=== PATIENT | male | born 1940 | race Caucasian/White ===

== ENCOUNTER 2018-11-21 09:30 | Day surgery (SDC) | payer OTHER ==
[2018-11-21] MEDS: CYCLOPENTOLATE 1% OPTH 2 ML ONE ×3 (09:45→09:55)
[2018-11-21] MEDS: PHENYLEPHRINE 10% OPTH 5ML ONE ×3 (09:45→09:55)
[2018-11-21] MEDS ORDERED: BALANCED SALT IRRIG PLAIN 500 ML BTL IRR ONE (10:02)
[2018-11-21] MEDS ORDERED: EPINEPHRINE/PF 1 MG/ML AMP ONE (10:02)
[2018-11-21] MEDS ORDERED: DUOVISC 1 KIT OPTH ONE (10:02)
[2018-11-21] MEDS ORDERED: NS 0.9% VIAL 10 ML ONE (10:02)
[2018-11-21] MEDS ORDERED: MOXIFLOXACIN HCL 10 DROPS/ML **OR USE OPTH ONE (10:03)
[2018-11-21] MEDS ORDERED: LIDOCAINE 2% INJ, MPF 2 ML 0 ML ONE (10:03)
[2018-11-21] MEDS ORDERED: BUPIVACAINE 0.25% PF 10 ML VIAL ONE (10:36)
[2018-11-21] MEDS ORDERED: TETRACAINE HCL 0.5% 2ML OPTH ONE (10:36)
[2018-11-21] MEDS ORDERED: NA CHLORIDE 0.9% 500 ML ONE (10:36)
[2018-11-21] MEDS ORDERED: LIDOCAINE 2% MPF 5 ML VIAL ONE (11:02)
[2018-11-21] MEDS ORDERED: MIDAZOLAM HCL 2 MG/2 ML INJ ONE (11:10)
[2018-11-21] MEDS ORDERED: FENTANYL CITR 100 MCG/2 ML ONE (11:10)
[2018-11-21] MEDS ORDERED: LIDOCAINE HCL/PF 3.5% OPTH GEL ONE (11:38)
--- NOTE | 2018-11-21 12:07 | P.BOP ---
Preoperative diagnosis: Nuclear sclerotic and posterior subcapsular cataract OS Postoperative diagnosis: Same Primary procedure: Phacoemulsification with IOL OS Estimated blood loss: None Anesthesia: Local (Topical with anesthesia for cataract surgery) Complications: None Implants: SA60WF +21.0 Transferred to: Other (Day surgery) Condition: Good
[2018-11-21] MEDS ORDERED: LIDOCAINE 1% MPF 2 ML AMPULE ONE (12:25)
[2018-11-21 12:29] VITALS: BP 144/84; TEMP 97.3; O2SAT 100
--- NOTE | 2018-11-21 23:30 | OP ---
Date of Procedure: 11/21/2018 Surgeon: Nehal Connelly MD Anesthesiologist: John Washburn CRNA and Lalit Cuevas MD. Preoperative Diagnoses: Nuclear sclerotic and posterior subcapsular cataract, left eye. Operation Performed: Phacoemulsification with intraocular lens implant, left eye. Anesthesia: Per cataract surgery. Complications: None. Description Of Procedure: In the operating room the patient was prepped and draped in the usual ster ile fashion for ophthalmic surgery. A lid speculum was placed in the left eye. Two paracentesis sit es were made superiorly and inferiorly in the limbal cornea. Viscoat was placed in the anterior angie lópez and a crescent blade was used to make a corneal groove and tunnel, and a keratome was used to ent er the anterior chamber. Provisc was placed in the anterior chamber and a 360 degree capsulotomy was performed with a cystitome. The lens was hydrodissected with BSS and rotated freely. The lens was removed with a stop and chop technique. 15.67 phaco CDE was used to remove the lens. Residual loren x was removed with the irrigation and aspiration. Provisc was placed in the capsular bag. A SA60WF +21.0 lens was placed in the capsular bag without complications. Irrigation and aspiration were used to remove residual viscoelastic. The paracentesis sites were hydrated with BSS. The wound and para centesis sites were inspected and found to be watertight. Vigamox 0.07 cc was placed intracamerally at the end of the procedure. The eye was irrigated with balanced salt solution. The eye was patched with a soft cotton patch and Rod metal shield. The patient was returned to day surgery in good condition. Comments: Akten was placed in the eye in Day Surgery and irrigated out of the eye with BSS in the OR . Preservative-free 1% lidocaine was placed in the anterior chamber prior to Viscoat. Discharge Instructions: Mr. Rios is discharged to home in good condition and is to follow up with Lopez Connelly in the morning. FRANKLIN/ARSENIO Voice ID: [id number] Report ID: [id number]
== END 2018-11-21 12:29 | disposition home or self-care (01) ==
LOC: OR 09:30
PROVIDERS: ATTEND Ophthalmology Retina Specialist
PROC: 08RK3JZ Replacement of Left Lens with Synthetic Substitute, Percutaneous Approach (ICD-10-PCS; principal; 2018-11-21 10:30)
DX: H25.12 Age-related nuclear cataract, left eye (principal); H25.042 Posterior subcapsular polar age-related cataract, left eye; I10 Essential (primary) hypertension; I48.91 Unspecified atrial fibrillation; K21.9 Gastro-esophageal reflux disease without esophagitis; E78.00 Pure hypercholesterolemia, unspecified; Z82.3 Family history of stroke; Z82.49 Family history of ischemic heart disease and other diseases of the circulatory system
CPT/HCPCS: 66984; J0171; J2250; J2001; J3010; J3490

== ENCOUNTER 2020-11-03 00:45 | Emergency (ER) | payer OTHER ==
--- OUTSIDE RECORDS SUMMARY | 2020-11-03 00:49 | XMS REPORT | Continuity of Care Document ---
:1940 Author Organization [facility] t Address [address] [place] [address] Care Team Providers Name Role Phone Jacqueline Green RN Attending Clinician Unavailable Only, Test Attending Clinician Unavailable Problems This patient has no known problems. Allergies, Adverse Reactions, Alerts This patient has no known allergies or adverse reactions. Medications This patient has no known medications. Procedures This patient has no known procedures. Encounters Start End Encounter Admission Attending Care Care Encounter Source Date/Time Date/Time Type Type Clinicians Facility Department ID 2020-07-22 2020-07-22 Telephone Sherrell Green [id number] 00:00:00 00:00:00 [place] [id number] [facility] [id number] 2020-07-18 2020-07-18 Laboratory Only, [facility] [id number] 10:49:05 11:04:05 Only Test [place] [id number] [place] [id number] [place] [id number] 2020-07-03 2020-07-03 Outpatient [facility] [id number] [facility]:00[facility]00 [facility] Results Test Description Test Time Test Comments Results Result Comments Source Surgically Obtained Culture 2019-01-21 10:54:54 Test Item Value Reference Range Interpretation Comme nts Amended Final Report (test code = No growth at 24 hours. No growth at 48 Amended Final Report) hours. No growth at 3 days. No growth at 4 days. No growth at 5 days. No growth at 6 days. No growth at 7 days. No growth at 8 days. No growth at 9 days. No growth at 10 days. No growth at 11 days. No growth at 12 days. No growth at 13 days. No growth at 14 days. No Anaerobes Isolated at 14 days. Gram Stain Report (test code = Gram No organisms seen. No WBC's see n. Stain Report) VITREOUS FLUID ON LEFT EYE.Surgically Obtained [id number] 08:02:50 Test Item Value Reference Range Interpretation Comments Final Report (test No growth at 24 hours. code = Final Report) No growth at 48 hours. No growth at 3 days. No growth at 4 days. No growth at 5 days. No growth at 6 days. No growth at 7 days. No growth at 8 days. No growth at 9 days. No growth at 10 days. No growth at 11 days. No growth at 12 days. No growth at 13 days. No growth at 14 days. No Anaerobes Isolated at 5 Days Gram Stain Report No organisms seen. No (test code = Gram WBC's seen. Stain Report) VITREOUS FLUID ON LEFT EYE.
[2020-11-03] MEDS ORDERED: FAMOTIDINE 20 MG/2 ML VIAL IV ONE (01:40)
[2020-11-03] MEDS ORDERED: NA CHLORIDE 0.9% 1,000 ML ONE (01:40)
[2020-11-03] MEDS ORDERED: ONDANSETRON 4 MG/2 ML VIAL ONE (01:40)
[2020-11-03 01:55] LABS: Absolute Lymphocytes (CBC) 0.2 K/uL (0.7-4.9); Basophils % 0.2 % (0-1.3); Hematocrit 46.6 % (39.6-49.0); Lymphocytes % 1.9 % (15.3-44.8); MPV 8.3 fL (7.6-11.3)
[2020-11-03 02:06] LABS: Bilirubin Direct 0.3 mg/dL (0-0.2); Bilirubin Total 1.3 mg/dL (0.2-1.0); Potassium 3.9 mmol/L (3.5-5.1); Protein, Total 7.9 g/dL (6.4-8.2)
[2020-11-03 03:42] LABS: Urine Blood 2+ (NEG); Urine Glucose NEGATIVE (NEG); Urine Protein 1+ (NEG); Urine Specific Gravity >1.030 (1.005-1.030); Urine pH 5.5 (5.0-7.0)
[2020-11-03 04:18] LABS: Blood Morphology Comment NOT SEEN (NOT SEEN); Platelet Estimate ADEQ
[2020-11-03] MEDS ORDERED: CEFTRIAXONE/SWI 1gm 1 GM/10 ML SYR ONE (04:19)
[2020-11-03] MEDS ORDERED: METRONIDAZOLE 500mg IVPB 500 MG/100 ML BAG IV ONE (04:19)
--- NOTE | 2020-11-03 04:56 | ER ---
Nurse's Notes [facility] Name: Artemio Rios Age: 80 yrs Sex: Male : 1940 Arrival Date: 11/03/2020 Time: 00:48 Bed 17 Private MD: Diagnosis: Gastroenteritis;UTI Presentation: 11/03 01:00 Chief complaint: Patient states: I started to vomit and having diarrhea around 930PM rr5 last night with chills and some shortness of breath. denies pain. 01:00 Coronavirus screen: Client denies travel out of the [place] in the last 14 days. chills, rr5 diarrhea, vomiting. Client presents with at least one sign or symptom that may indicate coronavirus-19. Standard/surgical mask placed on the client. Ebola Screen: Patient negative for fever greater than or equal to 101.5 degrees Fahrenheit, and additional compatible Ebola Virus Disease symptoms Patient denies exposure to infectious person. Patient denies travel to an Ebola-affected area in the 21 days before illness onset. Initial Sepsis Screen: Does the patient meet any 2 criteria? No. Patient's initial sepsis screen is negative. Does the patient have a suspected source of infection? No. Patient's initial sepsis screen is negative. Risk Assessment: Do you want to hurt yourself or someone else? Patient reports no desire to harm self or others. Onset of symptoms was November 02, 2020 at 21:30. 01:00 Method Of Arrival: Wheelchair rr5 01:00 Acuity: KAROLYN 3 rr5 Historical: - Allergies: 01:00 No Known Allergies; rr5 - Home Meds: 01:00 atorvastatin 40 mg Oral tab 1 tab once daily [Active]; Eliquis 5 mg Oral tab 1 tab 2 rr5 times per day [Active]; losartan-hydrochlorothiazide 100-12.5 mg oral tab [Active]; Omeprazole Oral [Active]; Zyrtec 10 mg Oral cap [Active]; - PMHx: 01:00 Atrial Fib; Hyperlipidemia; Hypertension; rr5 - PSHx: 01:00 leg surgery; Appendectomy; rr5 - Immunization history:: Adult Immunizations up to date. - Social history:: Smoking status: unknown. Screenin:35 Abuse screen: Denies threats or abuse. Denies injuries from another. Nutritional rr5 screening: No deficits noted. Tuberculosis screening: No symptoms or risk factors identified. Fall Risk IV access (20 points). Total Lee Fall Scale indicates No Risk (0-24 pts). Assessment: 01:15 General: Appears in no apparent distress. uncomfortable, Behavior is calm, cooperative, rr5 appropriate for age. Pain: Denies pain. Neuro: Level of Consciousness is awake, alert, obeys commands, Oriented to person, place, time, situation. Cardiovascular: Capillary refill < 3 seconds Patient's skin is warm and dry. Respiratory: Airway is patent Respiratory effort is even, unlabored, Respiratory pattern is regular, symmetrical. 01:15 GI: Abdomen is round non-distended, Reports diarrhea, nausea, vomiting. : No signs rr5 and/or symptoms were reported regarding the genitourinary system. EENT: No signs and/or symptoms were reported regarding the EENT system. Derm: Skin is intact, is healthy with good turgor, Skin temperature is warm. Musculoskeletal: Capillary refill < 3 seconds. 02:45 Reassessment: Patient and/or family updated on plan of care and expected duration. Pain fu level reassessed. Patient is alert, oriented x 3, equal unlabored respirations, skin warm/dry/pink. on bed, IVF bolus on going, spouse at bedisde. 03:45 Reassessment: patient voided and passed loose watery stools in the bedside commode. fu Vital Signs: 01:00 BP 129 / 78; Pulse 76; Resp 17; Temp 97.9; Pulse Ox 98% ; Weight 86.18 kg; Height 5 ft. rr5 11 in. (180.34 cm); Pain 0/10; 01:53 BP 130 / 87; Pulse 107; Resp 16; Pulse Ox 98% ; rr5 02:30 BP 147 / 80; Pulse 87; Resp 19; Pulse Ox 98% on R/A; fu 03:15 BP 141 / 82; Pulse 88; Resp 20; Pulse Ox 94% on R/A; Pain 0/10; fu 04:00 BP 121 / 89; Pulse 94; Resp 19; Temp 98.8; Pulse Ox 98% on R/A; Pain 0/10; fu 01:00 Body Mass Index 26.50 (86.18 kg, 180.34 cm) rr5 ED Course: 00:48 Patient arrived in ED. am4 00:53 Scot Conde, ANDREAS is Primary Nurse. rr5 01:00 Omid Salazar MD is Attending Physician. 7 01:07 Triage completed. rr5 01:10 Arm band placed on right wrist. rr5 01:25 EKG done, by ED staff, reviewed by Omid Salazar MD. rr5 01:35 Patient has correct armband on for positive identification. Placed in gown. Bed in low rr5 position. Call light in reach. Side rails up X2. desk monitor on. Pulse ox on. NIBP on. 01:35 Inserted saline lock: 20 gauge in right antecubital area, using aseptic technique. rr5 Blood collected. 03:19 CT Abd/Pelvis - Without Contrast In Process Unspecified. EDMS 04:00 No provider procedures requiring assistance completed. fu 04:54 Kye Wheat MD is Referral Physician. 7 05:20 IV discontinued, bleeding controlled, Pressure dressing applied. fu Administered Medications: 01:35 Drug: NS 0.9% 1000 ml Route: IV; Rate: 1000 ml; Site: right antecubital; rr5 01:35 Drug: Zofran (Ondansetron) 4 mg Route: IVP; Site: right antecubital; rr5 02:21 Follow up: Response: No adverse reaction rr5 01:37 Drug: Pepcid 20 mg Route: IVP; Site: right antecubital; rr5 02:21 Follow up: Response: No adverse reaction rr5 04:10 Drug: Rocephin - (cefTRIAXone) 1 grams Route: IVPB; Infused Over: 30 mins; Site: right fu antecubital; 05:10 Follow up: Response: No adverse reaction fu 04:20 Drug: Flagyl 500 mg Volume: 100 ml; Route: IVPB; Rate: 200 ml/hr; Infused Over: 30 fu mins; Site: right antecubital; 05:20 Follow up: Response: No adverse reaction; IV Intake: 100ml fu Intake: 05:20 IV: 100ml; Total: 100ml. fu Outcome: 04:55 Discharge ordered by . mh7 05:20 Patient left the ED. fu 05:25 Discharged to home via wheelchair, with family. fu 05:25 Condition: stable 05:25 Discharge instructions given to patient, family, Instructed on discharge instructions, follow up and referral plans. Demonstrated understanding of instructions, follow-up care, medications, Prescriptions given X 5 Signatures: Dispatcher [employer] Asif Salazar RN RN fu Roque, Raymond, RN RN rr5 Omid Salazar MD MD 7 Ana Terry am4
--- NOTE | 2020-11-03 04:56 | EDPHYS ---
Physician Documentation [facility] Name: Artemio Rios Age: 80 yrs Sex: Male : 1940 Arrival Date: 11/03/2020 Time: 00:48 Bed 17 Private MD: PERLA Physician Omid Salazar HPI: 11/03 02:15 This 80 yrs old Male presents to ER via Wheelchair with complaints of mh7 Vomiting/Diarrhea. 02:15 The patient presents to the emergency department with nausea, that is moderate, mh7 vomiting, that is intermittent, diarrhea, that is intermittent. Onset: The symptoms/episode began/occurred last night, at 22:00. Possible causes: bad food exposure, possibly bad home food. The symptoms are aggravated by nothing. The symptoms are alleviated by nothing. Associated signs and symptoms: Pertinent positives: diarrhea, nausea, vomiting, Pertinent negatives: abdominal pain, anorexia, belching, constipation, dysuria, fever, flatulence, GI bleeding, hematuria. Severity of symptoms: At their worst the symptoms were moderate today, in the emergency department the symptoms have improved moderately. Historical: - Allergies: 01:00 No Known Allergies; rr5 - Home Meds: 01:00 atorvastatin 40 mg Oral tab 1 tab once daily [Active]; Eliquis 5 mg Oral tab 1 tab 2 rr5 times per day [Active]; losartan-hydrochlorothiazide 100-12.5 mg oral tab [Active]; Omeprazole Oral [Active]; Zyrtec 10 mg Oral cap [Active]; - PMHx: 01:00 Atrial Fib; Hyperlipidemia; Hypertension; rr5 - PSHx: 01:00 leg surgery; Appendectomy; rr5 - Immunization history:: Adult Immunizations up to date. - Social history:: Smoking status: unknown. ROS: 02:15 Constitutional: Negative for fever, chills, and weight loss, Eyes: Negative for injury, mh7 pain, redness, and discharge, ENT: Negative for injury, pain, and discharge, Neck: Negative for injury, pain, and swelling, Cardiovascular: Negative for chest pain, palpitations, and edema, Respiratory: Negative for shortness of breath, cough, wheezing, and pleuritic chest pain, Back: Negative for injury and pain, : Negative for injury, bleeding, discharge, and swelling, MS/Extremity: Negative for injury and deformity, Skin: Negative for injury, rash, and discoloration, Neuro: Negative for headache, weakness, numbness, tingling, and seizure, Psych: Negative for depression, anxiety, suicide ideation, homicidal ideation, and hallucinations, Allergy/Immunology: Negative for hives, rash, and allergies, Endocrine: Negative for neck swelling, polydipsia, polyuria, polyphagia, and marked weight changes, Hematologic/Lymphatic: Negative for swollen nodes, abnormal bleeding, and unusual bruising. Exam: 02:15 Constitutional: This is a well developed, well nourished patient who is awake, alert, mh7 and in no acute distress. Head/Face: Normocephalic, atraumatic. Eyes: Pupils equal round and reactive to light, extra-ocular motions intact. Lids and lashes normal. Conjunctiva and sclera are non-icteric and not injected. Cornea within normal limits. Periorbital areas with no swelling, redness, or edema. Neck: Trachea midline, no thyromegaly or masses palpated, and no cervical lymphadenopathy. Supple, full range of motion without nuchal rigidity, or vertebral point tenderness. No Meningismus. Chest/axilla: Normal chest wall appearance and motion. Nontender with no deformity. No lesions are appreciated. 02:15 Abdomen/GI: Soft, non-tender, with normal bowel sounds. No distension or tympany. No guarding or rebound. No evidence of tenderness throughout. Back: No spinal tenderness. No costovertebral tenderness. Full range of motion. Skin: Warm, dry with normal turgor. Normal color with no rashes, no lesions, and no evidence of cellulitis. MS/ Extremity: Pulses equal, no cyanosis. Neurovascular intact. Full, normal range of motion. Neuro: Awake and alert, GCS 15, oriented to person, place, time, and situation. Cranial nerves II-XII grossly intact. Motor strength 5/5 in all extremities. Sensory grossly intact. Cerebellar exam normal. Normal gait. Psych: Awake, alert, with orientation to person, place and time. Behavior, mood, and affect are within normal limits. 02:15 Cardiovascular: Rate: normal, Rhythm: irregularly irregular, Pulses: no pulse deficits are appreciated, Heart sounds: normal, normal S1and S2, Edema: is not appreciated, JVD: is not appreciated. Vital Signs: 01:00 BP 129 / 78; Pulse 76; Resp 17; Temp 97.9; Pulse Ox 98% ; Weight 86.18 kg; Height 5 ft. rr5 11 in. (180.34 cm); Pain 0/10; 01:53 BP 130 / 87; Pulse 107; Resp 16; Pulse Ox 98% ; rr5 02:30 BP 147 / 80; Pulse 87; Resp 19; Pulse Ox 98% on R/A; fu 03:15 BP 141 / 82; Pulse 88; Resp 20; Pulse Ox 94% on R/A; Pain 0/10; fu 04:00 BP 121 / 89; Pulse 94; Resp 19; Temp 98.8; Pulse Ox 98% on R/A; Pain 0/10; fu 01:00 Body Mass Index 26.50 (86.18 kg, 180.34 cm) rr5 MDM: 04:52 Differential diagnosis: pancreatitis, diverticulitis, viral gastroenteritis, mh7 gastroenteritis. Data reviewed: vital signs, nurses notes, lab test result(s), CBC, electrolytes, urinalysis, EKG, radiologic studies, CT scan. Data interpreted: Pulse oximetry: on room air is 98 %. Interpretation: normal. Counseling: I had a detailed discussion with the patient and/or guardian regarding: the historical points, exam findings, and any diagnostic results supporting the discharge/admit diagnosis, lab results, radiology results, the need for outpatient follow up, to return to the emergency department if symptoms worsen or persist or if there are any questions or concerns that arise at home. Response to treatment: the patient's symptoms have resolved after treatment, the patient's blood pressure is in an acceptable range, mental status has returned to baseline, the patient no longer shows bradycardia, the patient is not short of breath, the patient is not tachycardic, the patient's pain is gone, the patient's temperature has normalized, patient is well hydrated. 04:55 Patient medically screened. [facility] 06:50 ED course: Well appearing, NAD, VSS. Discussed test results and findings with patient tao and . Patient requested to be discharged from the ED.. 11/03 01:18 Order name: Basic Metabolic Panel; Complete Time: 02:32 [facility] 11/03 01:18 Order name: CBC with Diff; Complete Time: 04:45 [facility] 11/03 01:18 Order name: Hepatic Function; Complete Time: 02:32 mh7 11/03 01:18 Order name: Lipase; Complete Time: 02:32 mh7 11/03 01:55 Order name: Manual Differential; Complete Time: 04:45 EDMS 11/03 03:21 Order name: Urine Dipstick--Ancillary (enter results); Complete Time: 03:59 tt3 11/03 01:18 Order name: IV Saline Lock; Complete Time: 01:42 7 11/03 02:35 Order name: CT Abd/Pelvis - Without Contrast [facility] 11/03 01:18 Order name: Labs collected and sent; Complete Time: 01:42 mh7 11/03 01:18 Order name: Urine Dipstick-Ancillary (obtain specimen); Complete Time: 03:19 7 11/03 01:18 Order name: EKG - Nurse/Tech; Complete Time: 01:42 mh7 Administered Medications: 01:35 Drug: NS 0.9% 1000 ml Route: IV; Rate: 1000 ml; Site: right antecubital; rr5 01:35 Drug: Zofran (Ondansetron) 4 mg Route: IVP; Site: right antecubital; rr5 02:21 Follow up: Response: No adverse reaction rr5 01:37 Drug: Pepcid 20 mg Route: IVP; Site: right antecubital; rr5 02:21 Follow up: Response: No adverse reaction rr5 04:10 Drug: Rocephin - (cefTRIAXone) 1 grams Route: IVPB; Infused Over: 30 mins; Site: right fu antecubital; 05:10 Follow up: Response: No adverse reaction fu 04:20 Drug: Flagyl 500 mg Volume: 100 ml; Route: IVPB; Rate: 200 ml/hr; Infused Over: 30 fu mins; Site: right antecubital; 05:20 Follow up: Response: No adverse reaction; IV Intake: 100ml fu Disposition: 11/03/20 04:55 Discharged to Home. Impression: Gastroenteritis, UTI. - Condition is Stable. - Discharge Instructions: Viral Gastroenteritis, Adult, [id number], Urinary Tract Infection, Adult, [id number]. - Prescriptions for Zofran ODT 4 mg Oral tablet,disintegrating - place 1 tablet by TRANSLINGUAL route every 8 hours As needed; 6 tablet. Bentyl 20 mg Oral Tablet - take 1 tablet by ORAL route every 6 hours As needed; 20 tablet. Flagyl 500 mg Oral Tablet - take 1 tablet by ORAL route every 8 hours for 7 days; 21 tablet. Pepcid 20 mg Oral Tablet - take 1 tablet by ORAL route every 12 hours for 5 days; 10 tablet. Cipro 500 mg Oral Tablet - take 1 tablet by ORAL route every 12 hours for 7 days; 14 tablet. - Medication Reconciliation Form, Thank You Letter, Antibiotic Education, Prescription Opioid Use form. - Follow up: Private Physician; When: 1 - 2 days; Reason: Worsening of condition, Recheck today's complaints, Continuance of care, Re-evaluation by your physician. Follow up: Kye Wheat MD; When: 1 - 2 days; Reason: If symptoms return, Worsening of condition, Recheck today's complaints. - Problem is new. - Symptoms have improved. Signatures: Dispatcher [employer] EDMS Raheel Nunez, DIRECTOR DIGITAL-C DIRECTOR DIGITAL-Cla1 Asif Hernandez RN RN Scot Conde RN RN rr5 Omid Salazar MD MD mh7 Corrections: (The following items were deleted from the chart) 05:20 04:55 11/03/2020 04:55 Discharged to Home. Impression: Gastroenteritis; UTI. Condition fu is Stable. Forms are Medication Reconciliation Form, Thank You Letter, Antibiotic Education, Prescription Opioid Use. Follow up: Private Physician; When: 1 - 2 days; Reason: Worsening of condition, Recheck today's complaints, Continuance of care, Re-evaluation by your physician. Follow up: Kye Wheat; When: 1 - 2 days; Reason: If symptoms return, Worsening of condition, Recheck today's complaints. Problem is new. Symptoms have improved. mh7
[2020-11-03 05:30] VITALS: BP 121/89; TEMP 98.8; O2SAT 98
--- NOTE | 2020-11-04 12:53 | RAD REPORT ---
EXAM DESCRIPTION: CT - Abdomen Pelvis Wo Contrast - 11/03/2020 4:33 am COMPARISON: CT abdomen and pelvis January 01, 2020 CLINICAL HISTORY: [facility] MAIN diarrhea;Nausea / vomiting TECHNIQUE: CT of the abdomen and pelvis was acquired without IV contrast material. Coronal and sagit cristofer reconstructions were obtained. Automated exposure control was utilized on this examination as a dose lowering technique. FINDINGS: Lung bases: Clear. *Evaluation of solid organs is limited due to lack of IV contrast. Liver: Multiple hepatic hypodensities measuring up to 2.6 cm are well-circumscribed and most likely r epresent benign cysts or hemangiomas. Gallbladder and biliary: Normal gallbladder. Unremarkable biliary tree. Pancreas: Normal. Spleen: Normal. Adrenal glands: Normal adrenal glands. Kidneys: A 2.5 cm left renal cyst demonstrates dependent calcification, likely representing a benign milk of calcium cyst. Stomach and Small Bowel: The stomach and small bowel are normal. Urinary bladder: Normal. Prostate/Male Urogenital: Normal. Colon and Appendix: Moderate sigmoid diverticulosis. Appendectomy. Retroperitoneum and lymph nodes: A few mesenteric lymph nodes are increased in number but not in size with trace central mesenteric fat stranding. Vascular: Severe multivessel calcified atherosclerosis. Peritoneal cavity: No ascites or free air. Musculoskeletal and soft tissues: Soft tissues are unremarkable. No aggressive bone lesions. Chroni c left inferolateral rib fractures are noted. Lumbar spondylosis is present. Mild lumbar dextroscolio sis is also noted. No compression fracture. IMPRESSION: 1. Multiple loops of small large bowel contain fluid, consistent with diarrheal state. N o significant bowel inflammation. 2. Trace central mesenteric fat stranding with a few prominent lymph nodes. This could be reactive or could be seen with mild mesenteric panniculitis. 3. Moderate sigmoid diverticulosis. 4. Severe atherosclerosis. Electronically signed by: Fausto Marquez MD 11/03/2020 3:33 AM CDT Due to temporary technical issues with the PACS/Fluency reporting system, reports are being signed by the in house radiologist without review as a courtesy to ensure prompt reporting. The interpreting r adiologist is fully responsible for the content of the report.
== END 2020-11-03 05:20 | disposition home or self-care (01) ==
LOC: ER 00:45
DX: K52.9 Noninfective gastroenteritis and colitis, unspecified (principal); N39.0 Urinary tract infection, site not specified; I10 Essential (primary) hypertension; E78.5 Hyperlipidemia, unspecified; I48.91 Unspecified atrial fibrillation; Z79.01 Long term (current) use of anticoagulants
CPT/HCPCS: 93005; 85025; 80048; 36415; 80076; 81003; 83690; 74176; 96375; 96374; 99285; J0696; J7030; J2405

== ENCOUNTER 2022-04-06 08:40 | Emergency (ER) | payer OTHER ==
--- OUTSIDE RECORDS SUMMARY | 2022-04-06 08:43 | XMS REPORT | Continuity of Care Document ---
:1940 Author Organization [facility] t Address [address] [place] [address] Care Team Providers Name Role Phone Sherrell Green RN Attending Clinician Unavailable Only, Adc Test Attending Clinician Unavailable Devon Blackwood MD Attending Clinician DEVON BLACKWOOD Attending Clinician Unavailable Payers Payer Name Policy Type Policy Number Effective Date Expiration Date S ource Problems This patient has no known problems. Allergies, Adverse Reactions, Alerts Allergy Allergy Status Severity Reaction(s) Onset Inactive Treating Comm ents Source Name Type Date Date Clinician NO KNOWN Drug Active Univers ALLERGIE Class ity of S [facility] Social History Social Habit Start Date Stop Date Quantity Comments Source Sex Assigned At [facility] to [facility]2 [facility] Smoking Status Start Date Stop Date Source Unknown if ever smoked [facility] Medications This patient has no known medications. Procedures This patient has no known procedures. Encounters Start End Encounter Admission Attending Care Care Encounter Source Date/Time Date/Time Type Type Clinicians Facility Department ID 2021-09-10 [facility] [id number] Common 12:06:17 [id number] [facility] 2021-10-30 2021-10-30 ambulatory [facility] [id number] Common 00:00:00 00:00:00 [facility] 2021-04-03 2021-04-03 Outpatient [facility] [id number] Common 00:00:00 00:00:00 [facility] 2021-01-01 2021-01-01 Outpatient [facility] [id number] Common 00:00:00 00:00:00 [facility] 2020-07-22 2020-07-22 Telephone Sherrell Green [id number] [facility] 00:00:00 00:00:00 ADA [id number] it [facility] [id number] [facility] [id number] [address] 2020-07-22 2020-07-22 Telephone Sherrell Green [id number] 00:00:00 00:00:00 ADA [id number] [id number] [facility] [place] 2020-07-18 2020-07-18 Laboratory Only, [facility] Test [facility] [id number]. [id number] Univers 10:49:05 11:04:05 Only Devon [place] [id number] [facility] [id number] [facility] [id number] [address] 2020-07-18 2020-07-18 Laboratory Only, [facility] [id number] 10:49:05 11:04:05 Only Test Kel [id number] [place] [id number] [place] [id number] [facility] 2020-07-18 2020-07-18 Outpatient Murray BLACKWOOD [facility] [id number] Univers 11:00:00 11:00:00 DEVON ity [facility] 2020-07-03 2020-07-03 Outpatient [facility] [id number] Common 00:00:00 00:00:00 [facility] Results Test Description Test Time Test Comments [...] Report) VITREOUS FLUID ON LEFT EYE.Surgically Obtained [id number] 08:02:50 Test Item Value Reference Range Interpretation [...]
[2022-04-06 09:25] LABS: Absolute Lymphocytes (CBC) 0.3 K/uL (0.7-4.9); Hematocrit 44.3 % (39.6-49.0); Lymphocytes % 4.3 % (15.3-44.8); MCV 90.2 fL (80-100); MPV 7.6 fL (7.6-11.3); RBC Red Blood Cell Count 4.91 M/uL (4.33-5.43)
[2022-04-06 09:48] LABS: Albumin 3.6 g/dL (3.4-5.0); Bilirubin Total 1.2 mg/dL (0.2-1.0); Potassium 3.9 mmol/L (3.5-5.1); Protein, Total 7.4 g/dL (6.4-8.2); Troponin High Sensitivity 10.7 pg/mL (<58.9)
--- NOTE | 2022-04-06 10:44 | RAD REPORT ---
EXAM DESCRIPTION: RAD - Chest Single View - 04/06/2022 10:02 am CLINICAL HISTORY: MALAISE COMPARISON: Chest Pa And Lat (2 Views) dated 10/13/2016; CHEST PA AND LAT 2 VIEW dated 11/13/2013 FINDINGS: Lines: None. Lungs: No evidence of edema or pneumonia. Pleural: No significant pleural effusions or pneumothorax. Cardiac: The heart size is within normal limits. Bones: No acute fractures. Other: IMPRESSION: No acute cardiopulmonary disease.
--- NOTE | 2022-04-06 10:49 | ER ---
Nurse's Notes [facility] Name: Artemio Rios Age: 81 yrs Sex: Male : 1940 Arrival Date: 04/06/2022 Time: 08:45 Bed 13 Private MD: Willy Montanez Diagnosis: Diarrhea, unspecified Presentation: 04/06 08:58 Chief complaint: Patient states: Diarrhea x4 and fatigue that began this morning. ss Denies fever and/or pain. Coronavirus screen: Client denies travel out of the [place] in the last 14 days. Ebola Screen: Patient denies exposure to infectious person. Patient denies travel to an Ebola-affected area in the 21 days before illness onset. Initial Sepsis Screen: Does the patient meet any 2 criteria? No. Patient's initial sepsis screen is negative. Does the patient have a suspected source of infection? No. Patient's initial sepsis screen is negative. Risk Assessment: Do you want to hurt yourself or someone else? Patient reports no desire to harm self or others. Onset of symptoms was April 06, 2022. 08:58 Method Of Arrival: Ambulatory ss 08:58 Acuity: KAROLYN 3 ss Triage Assessment: 11:19 General: Appears in no apparent distress. comfortable, Behavior is calm, cooperative, kr3 appropriate for age. Historical: - Allergies: 09:00 No Known Allergies; ss - PMHx: 09:00 Atrial Fib; Hyperlipidemia; Hypertension; ss - Immunization history:: Client reports receiving the 2nd dose of the Covid vaccine. - Social history:: Smoking status: Patient denies any tobacco usage or history of. Screenin:18 Abuse screen: Denies threats or abuse. Nutritional screening: No deficits noted. kr3 Tuberculosis screening: No symptoms or risk factors identified. Fall Risk Total Lee Fall Scale indicates No Risk (0-24 pts). Assessment: 09:45 Pain: Denies pain. kr3 10:19 Reassessment: No changes from previously documented assessment. Patient and/or family kr3 updated on plan of care and expected duration. Pain level reassessed. Vital Signs: 08:58 BP 135 / 72; Pulse 84; Resp 16; Temp 97.2(TE); Pulse Ox 99% ; Weight 86.18 kg; Height 5 ss ft. 11 in. (180.34 cm); Pain 0/10; 10:18 BP 126 / 74; Pulse 69; Resp 18; Pulse Ox 99% on R/A; kr3 11:17 BP 122 / 72; Pulse 81; Resp 18; Pulse Ox 99% on R/A; kr3 08:58 Body Mass Index 26.50 (86.18 kg, 180.34 cm) NIH Stroke Scale Scores: 09:14 NIHSS Score: 0 jl9 ED Course: 08:45 Patient arrived in ED. rg4 08:46 Willy Montanez MD is Private Physician. rg4 08:50 Pedro Luis Madrigal is PHCP. jl9 08:50 Freddie Cox MD is Attending Physician. jl9 08:59 Triage completed. ss 09:00 Arm band placed on right wrist. ss 09:02 Taylor Melendez, ANDREAS is Primary Nurse. kr3 09:05 Bed in low position. Call light in reach. Side rails up X 1. kr3 09:07 EKG done, reviewed by Pedro Luis Madrigal. ll1 09:18 Inserted saline lock: 20 gauge in right antecubital area, using aseptic technique. kc6 Blood collected. 09:19 Troponin High Sensitivity Sent. kc6 09:19 SARS-COV-2 RT PCR (Document "Date of Onset" if Symptomatic) Sent. kc6 09:19 CBC with Diff Sent. kc6 09:19 CMP Sent. kc6 09:19 Lipase Sent. kc6 10:03 XRAY Chest (1 view) In Process Unspecified. EDMS 11:19 No provider procedures requiring assistance completed. IV discontinued, intact, kr3 bleeding controlled, No redness/swelling at site. Pressure dressing applied. Administered Medications: No medications were administered Medication: 11:21 VIS not applicable for this client. kr3 Outcome: 10:48 Discharge ordered by . jl9 11:19 Discharged to home ambulatory. kr3 11:19 Condition: stable 11:19 Discharge instructions given to patient, Instructed on discharge instructions, follow up and referral plans. medication usage, Demonstrated understanding of instructions, follow-up care, medications, Prescriptions given X 2. 11:21 Patient left the ED. kr3 NIH Stroke Scale - NIH Stroke Score Date: 04/06/2022 Time: 09:14 Total Score = 0 1a. Level of Consciousness (LOC) - 0(Alert) 1b. Level of Consciousness (LOC) (Month \\T\\ Age) - 0(Both) 1c. LOC Commands (Open \\T\\ Closes Eyes/Commercial Real Estate Associate) - 0(Both) 2. Best Gaze (Lateral Gaze Paresis) - 0(Normal) 3. Visual Field Loss - 0(No visual loss) 4. Facial Palsy - 0(Normal) 5a. Left Arm: Motor (10-second hold) - 0(No drift) 5b. Right Arm: Motor (10-second hold) - 0(No drift) 6a. Left Leg: Motor (5-second hold - always test supine) - 0(No drift) 6b. Right Leg: Motor (5-second hold - always test supine) - 0(No drift) 7. Limb Ataxia (finger/nose \\T\\ heel/duarte - test with eyes open) - 0(Absent) 8. Sensory Loss (pinprick arms/legs/face) - 0(Normal) 9. Best Language: Aphasia (description/naming/reading) - 0(No aphasia) 10. Dysarthria (speech clarity - read or repeat words) - 0(Normal) 11. Extinction and Inattention (visual/tactile/auditory/spatial/personal) - 0(No abnormality) Initials: [email or web address] Signatures: Dispatcher [employer] EDSerina Tadeo RN RN ss Garcia, Rubi rg4 Saida Tolbert RN RN ll1 Pedro Luis Madrigal jl9 Taylor Melendez RN RN kr3 Tash Kelley kc6
--- NOTE | 2022-04-06 10:49 | EDPHYS ---
Physician Documentation [facility] Name: Artemio Rios Age: 81 yrs Sex: Male : 1940 Arrival Date: 04/06/2022 Time: 08:45 Bed 13 Private MD: Willy Montanez ED Physician Freddie Cox HPI: 04/06 09:12 This 81 yrs old Male presents to ER via Ambulatory with complaints of jl9 Weakness, Diarrhea. Would like to rule out COVID. . 09:12 Onset: The symptoms/episode began/occurred yesterday. Associated signs and symptoms: jl9 Pertinent positives: weakness, Pertinent negatives: dizziness, fever, syncope. Severity of symptoms: Pain is currently a 0 / 10. Current symptoms:. Current symptoms: Currently, the patient is not experiencing any symptoms. Historical: - Allergies: 09:00 No Known Allergies; ss - PMHx: 09:00 Atrial Fib; Hyperlipidemia; Hypertension; ss - Immunization history:: Client reports receiving the 2nd dose of the Covid vaccine. - Social history:: Smoking status: Patient denies any tobacco usage or history of. ROS: 09:13 Constitutional: Negative for fever, chills, and weight loss, Eyes: Negative for injury, jl9 pain, redness, and discharge, ENT: Negative for injury, pain, and discharge, Neck: Negative for injury, pain, and swelling, Cardiovascular: Negative for chest pain, palpitations, and edema, Respiratory: Negative for shortness of breath, cough, wheezing, and pleuritic chest pain. 09:13 Back: Negative for injury and pain, : Negative for injury, bleeding, discharge, and swelling, MS/Extremity: Negative for injury and deformity, Skin: Negative for injury, rash, and discoloration. 09:13 Psych: Negative for depression, anxiety, suicide ideation, homicidal ideation, and hallucinations, Allergy/Immunology: Negative for hives, rash, and allergies, Endocrine: Negative for neck swelling, polydipsia, polyuria, polyphagia, and marked weight changes, Hematologic/Lymphatic: Negative for swollen nodes, abnormal bleeding, and unusual bruising. 09:13 Abdomen/GI: Positive for diarrhea. 09:13 Neuro: Positive for weakness, Negative for altered mental status, dizziness, gait disturbance, headache. Exam: 09:14 Constitutional: This is a well developed, well nourished patient who is awake, alert, jl9 and in no acute distress. Head/Face: Normocephalic, atraumatic. Eyes: Pupils equal round and reactive to light, extra-ocular motions intact. Lids and lashes normal. Conjunctiva and sclera are non-icteric and not injected. Cornea within normal limits. Periorbital areas with no swelling, redness, or edema. ENT: Mucous membranes moist. Neck: Trachea midline, no thyromegaly or masses palpated, and no cervical lymphadenopathy. Supple, full range of motion without nuchal rigidity, or vertebral point tenderness. No Meningismus. Chest/axilla: Normal chest wall appearance and motion. Nontender with no deformity. No lesions are appreciated. Cardiovascular: Regular rate and rhythm with a normal S1 and S2. No gallops, murmurs, or rubs. Normal PMI, no JVD. No pulse deficits. Respiratory: Lungs have equal breath sounds bilaterally, clear to auscultation and percussion. No rales, rhonchi or wheezes noted. No increased work of breathing, no retractions or nasal flaring. Abdomen/GI: Soft, non-tender, with normal bowel sounds. No distension or tympany. No guarding or rebound. No evidence of tenderness throughout. Back: No spinal tenderness. No costovertebral tenderness. Full range of motion. Skin: Warm, dry with normal turgor. Normal color with no rashes, no lesions, and no evidence of cellulitis. MS/ Extremity: Pulses equal, no cyanosis. Neurovascular intact. Full, normal range of motion. Neuro: Awake and alert, GCS 15, oriented to person, place, time, and situation. Cranial nerves II-XII grossly intact. Motor strength 5/5 in all extremities. Sensory grossly intact. Cerebellar exam normal. Normal gait. Psych: Awake, alert, with orientation to person, place and time. Behavior, mood, and affect are within normal limits. Vital Signs: 08:58 BP 135 / 72; Pulse 84; Resp 16; Temp 97.2(TE); Pulse Ox 99% ; Weight 86.18 kg; Height 5 ss ft. 11 in. (180.34 cm); Pain 0/10; 10:18 BP 126 / 74; Pulse 69; Resp 18; Pulse Ox 99% on R/A; kr3 11:17 BP 122 / 72; Pulse 81; Resp 18; Pulse Ox 99% on R/A; kr3 08:58 Body Mass Index 26.50 (86.18 kg, 180.34 cm) ss NIH Stroke Scale Scores: 09:14 NIHSS Score: 0 MDM: 08:50 Patient medically screened. 09:11 Test interpretation: by ED physician or midlevel provider: ECG. 09:14 Data reviewed: vital signs, nurses notes. 10:48 Counseling: I had a detailed discussion with the patient and/or guardian regarding: the historical points, exam findings, and any diagnostic results supporting the discharge/admit diagnosis, lab results, radiology results, the need for outpatient follow up, to return to the emergency department if symptoms worsen or persist or if there are any questions or concerns that arise at home. 04/06 08:54 Order name: CBC with Diff; Complete Time: 10:12 04/06 08:54 Order name: CMP; Complete Time: 10:12 04/06 08:54 Order name: Lipase; Complete Time: 10:12 04/06 08:54 Order name: SARS-COV-2 RT PCR (Document "Date of Onset" if Symptomatic); Complete Time: 10:19 04/06 08:54 Order name: XRAY Chest (1 view); Complete Time: 10:47 04/06 08:54 Order name: Troponin High Sensitivity; Complete Time: 10:12 04/06 08:54 Order name: IV Saline Lock; Complete Time: 09:19 04/06 08:54 Order name: Labs collected and sent; Complete Time: 09:19 04/06 08:54 Order name: EKG; Complete Time: 08:54 jl Administered Medications: No medications were administered Disposition: 16:20 Co-signature as Attending Physician, Freddie Cox MD. rn Disposition Summary: 04/06/22 10:48 Discharge Ordered Location: Home jl9 Condition: Stable jl9 Diagnosis - Diarrhea, unspecified jl9 Followup: jl9 - With: Private Physician - When: 1 - 2 days - Reason: Recheck today's complaints, Continuance of care, Re-evaluation by your physician Discharge Instructions: - Discharge Summary Sheet jl9 - Diarrhea, Adult jl9 Forms: - Medication Reconciliation Form jl9 - Thank You Letter jl9 - Antibiotic Education jl9 - Prescription Opioid Use jl9 Prescriptions: - dicyclomine 10 mg Oral Capsule - take 1 capsule by ORAL route 3 times per day As needed; 20 capsule; Refills: 0, jl9 Product Selection Permitted - ondansetron 8 mg Oral tablet,disintegrating - take 1 tablet by ORAL route every 8 hours As needed; 20 tablet; Refills: 0, jl9 Product Selection Permitted NIH Stroke Scale - NIH Stroke Score Date: 04/06/2022 Time: 09:14 Total Score = 0 1a. Level of Consciousness (LOC) - 0(Alert) 1b. Level of Consciousness (LOC) (Month \\T\\ Age) - 0(Both) 1c. LOC Commands (Open \\T\\ Closes Eyes/Cashier Tube Room) - 0(Both) 2. Best Gaze (Lateral Gaze Paresis) - 0(Normal) 3. Visual Field Loss - 0(No visual loss) 4. Facial Palsy - 0(Normal) 5a. Left Arm: Motor (10-second hold) - 0(No drift) 5b. Right Arm: Motor (10-second hold) - 0(No drift) 6a. Left Leg: Motor (5-second hold - always test supine) - 0(No drift) 6b. Right Leg: Motor (5-second hold - always test supine) - 0(No drift) 7. Limb Ataxia (finger/nose \\T\\ heel/duarte - test with eyes open) - 0(Absent) 8. Sensory Loss (pinprick arms/legs/face) - 0(Normal) 9. Best Language: Aphasia (description/naming/reading) - 0(No aphasia) 10. Dysarthria (speech clarity - read or repeat words) - 0(Normal) 11. Extinction and Inattention (visual/tactile/auditory/spatial/personal) - 0(No abnormality) Initials: jl9 Signatures: Dispatcher [employer] EDFreddie Plasencia MD MD rn Smirch, Shelby, RN RN ss Linares, John jl9 Corrections: (The following items were deleted from the chart) 10:48 09:12 This 81 yrs old Male presents to ER via Ambulatory with jl9 complaints of Weakness, Diarrhea. jl9
[2022-04-06 11:41] VITALS: TEMP 97.2; O2SAT 99
[2022-04-06 11:59] VITALS: BP 122/72
--- NOTE | 2022-04-07 13:52 | EKG ---
Test Date: 2022-04-06 Test Time: 09:00:30 Customs Officer: ORACIO MEASUREMENT RESULTS: Intervals: Rate: 83 IL: QRSD: 84 QT: 362 QTc: 425 [place]: P: IL: QRS: -2 T: 14 INTERPRETIVE STATEMENTS: Atrial fibrillation Low voltage QRS Cannot rule out Inferior infarct, age undetermined Cannot rule out Anterior infarct, age undetermined Abnormal ECG Compared to ECG 11/03/2020 00:29:59 Low QRS voltage now present Myocardial infarct finding now present Ventricular premature complex(es) no longer present ST (T wave) deviation no longer present Electronically Signed On 04-07-22 13:50:13 CDT by Ag Freeman
== END 2022-04-06 11:21 | disposition home or self-care (01) ==
LOC: ER 08:40
DX: R19.7 Diarrhea, unspecified (principal); R53.1 Weakness; Z20.822 Contact with and (suspected) exposure to COVID-19; I10 Essential (primary) hypertension; I48.91 Unspecified atrial fibrillation
CPT/HCPCS: 85025; 36415; 84484; 83690; 80053; 71045; U0003; 93005; 99284

== ENCOUNTER 2022-04-25 17:04 | Emergency (ER) | payer OTHER ==
--- OUTSIDE RECORDS SUMMARY | 2022-04-25 17:07 | XMS REPORT | Continuity of Care Document ---
:1940 Author Organization [facility] t Address [address] [place] [address] Care Team Providers Name Role Phone Sherrell [...] Active Univers ALLERGIE Class ity of S [facility] Social History Social Habit Start Date Stop Date Quantity Comments Source Sex Assigned At Uni [facility] to [facility]2 [facility] Smoking Status Start Date Stop Date Source Unknown if ever smoked [facility] Medications This patient has no known medications. Procedures This patient has no known procedures. Encounters Start End Encounter Admission Attending Care Care Encounter Source Date/Time Date/Time Type Type Clinicians Facility Department ID 2021-09-10 [facility] [id number] Common 12:06:17 [id number] [facility] 2021-10-30 2021-10-30 amb[facility] [id number] Common 00:00:00 00:00:00 [facility] 2021-04-03 2021-04-03 Outpatient [facility] [id number] Common 00:00:00 00:00:00 [facility] 2021-01-01 2021-01-01 Outpatient [facility] [id number] Common 00:00:00 00:00:00 [facility] 2020-07-22 2020-07-22 Telephone Sherrell Green [id number] 00:00:00 00:00:00 ADA [id number] [id number] 019 2020-07-22 2020-07-22 Telephone Sherrell Green [id number] [facility] 00:00:00 00:00:00 ADA [id number] it y [facility] [id number] [place] [id number] [address] 2020-07-18 2020-07-18 Laboratory Only, [facility] [id number] 10:49:05 11:04:05 Only Test [place] [id number] [place] 4.2.7.2.686 [place] [id number] [facility] 2020-07-18 2020-07-18 Laboratory Only, [facility] Test [facility] 1.2.840. 114 [id number] [facility] 10:49:05 11:04:05 Only Devon Blackwood Kel [id number] ity [facility] 4.2.7.2.686 [facility] [id number] [address] 2020-07-18 2020-07-18 Outpatient R [facility] [id number] Univers 11:00:00 11:00:00 DEVON ity [facility] 2020-07-03 2020-07-03 Outpatient [facility] [id number] Common 00:00:00 00:00:00 [facility] Results Test Description Test Time Test Comments [...] Report) VITREOUS FLUID ON LEFT EYE.Surgically Obtained [id number] 08:02:50 Test Item Value Reference Range Interpretation [...]
[2022-04-25 17:49] LABS: SARS-CoV-2 Antigen Rapid Res Positive (Negative)
--- NOTE | 2022-04-25 17:53 | EDPHYS ---
Physician Documentation [facility] Name: Artemio Rios Age: 81 yrs Sex: Male : 1940 Arrival Date: 04/25/2022 Time: 17:05 Bed 12 Private MD: Willy Montanez ED Physician Zack Laureano HPI: 04/25 17:17 This 81 yrs old Male presents to ER via Ambulatory with complaints of Needs Covid Test. snw 17:17 The patient or guardian reports cough, described as mild. Onset: The symptoms/episode snw began/occurred 3 day(s) ago. Associated signs and symptoms: The patient has no apparent associated signs or symptoms. Severity of symptoms: At their worst the symptoms were very mild. The patient has not experienced similar symptoms in the past. sees Dr. Montanez. Pt went to [place], three Parishioners tested + for Covid. Historical: - Allergies: 17:13 No Known Allergies; kr3 - PMHx: 17:12 Hypertension; Atrial Fib; Hyperlipidemia; kr3 - PSHx: 17:12 freeze prostate; Appendectomy; kr3 - Immunization history:: Adult Immunizations up to date, Client reports receiving the 2nd dose of the Covid vaccine. - Social history:: Smoking status: Patient denies any tobacco usage or history of. ROS: 17:16 Constitutional: Negative for fever, chills, and weight loss, Eyes: Negative for injury, snw pain, redness, and discharge, ENT: Negative for injury, pain, and discharge, Neck: Negative for injury, pain, and swelling, Cardiovascular: Negative for chest pain, palpitations, and edema, Respiratory: Negative for shortness of breath, wheezing, and pleuritic chest pain, + cough Abdomen/GI: Negative for abdominal pain, nausea, vomiting, diarrhea, and constipation, Back: Negative for injury and pain, : Negative for injury, bleeding, discharge, and swelling, MS/Extremity: Negative for injury and deformity, Skin: Negative for injury, rash, and discoloration, Neuro: Negative for headache, weakness, numbness, tingling, and seizure, Psych: Negative for depression, anxiety, suicide ideation, homicidal ideation, and hallucinations. Exam: 17:16 Constitutional: This is a well developed, well nourished patient who is awake, alert, snw and in no acute distress. Head/Face: Normocephalic, atraumatic. Eyes: Pupils equal round and reactive to light, extra-ocular motions intact. Lids and lashes normal. Conjunctiva and sclera are non-icteric and not injected. Cornea within normal limits. Periorbital areas with no swelling, redness, or edema. ENT: Nares patent. No nasal discharge, no septal abnormalities noted. Tympanic membranes are normal and external auditory canals are clear. Oropharynx with no redness, swelling, or masses, exudates, or evidence of obstruction, uvula midline. Mucous membranes moist. Neck: Trachea midline, no thyromegaly or masses palpated, and no cervical lymphadenopathy. Supple, full range of motion without nuchal rigidity, or vertebral point tenderness. No Meningismus. Chest/axilla: Normal chest wall appearance and motion. Nontender with no deformity. No lesions are appreciated. Cardiovascular: Regular rate and rhythm with a normal S1 and S2. No gallops, murmurs, or rubs. Normal PMI, no JVD. No pulse deficits. Respiratory: Lungs have equal breath sounds bilaterally, clear to auscultation and percussion. No rales, rhonchi or wheezes noted. No increased work of breathing, no retractions or nasal flaring. Abdomen/GI: Soft, non-tender, with normal bowel sounds. No distension or tympany. No guarding or rebound. No evidence of tenderness throughout. Back: No spinal tenderness. No costovertebral tenderness. Full range of motion. Skin: Warm, dry with normal turgor. Normal color with no rashes, no lesions, and no evidence of cellulitis. MS/ Extremity: Pulses equal, no cyanosis. Neurovascular intact. Full, normal range of motion. Neuro: Awake and alert, GCS 15, oriented to person, place, time, and situation. Cranial nerves II-XII grossly intact. Motor strength 5/5 in all extremities. Sensory grossly intact. Cerebellar exam normal. Normal gait. Psych: Awake, alert, with orientation to person, place and time. Behavior, mood, and affect are within normal limits. Vital Signs: 17:09 BP 128 / 75; Pulse 79; Resp 16; Temp 97.7; Pulse Ox 100% ; Weight 86.18 kg; Height 5 kr3 ft. 11 in. (180.34 cm); Pain 0/10; 17:09 Body Mass Index 26.50 (86.18 kg, 180.34 cm) kr3 MDM: 17:10 Patient medically screened. snw 17:54 Data reviewed: vital signs, nurses notes. Data interpreted: Pulse oximetry: on room air snw is 100 %. Interpretation: normal. Counseling: I had a detailed discussion with the patient and/or guardian regarding: the historical points, exam findings, and any diagnostic results supporting the discharge/admit diagnosis, lab results, the need for outpatient follow up, to return to the emergency department if symptoms worsen or persist or if there are any questions or concerns that arise at home. Response to treatment: There is no appreciated change of the patient's symptoms at this time. Special discussion: Based on the history and exam findings, there is no indication for further emergent testing or inpatient evaluation. I discussed with the patient/guardian the need to see the primary care provider for further evaluation of the symptoms. 04/25 17:16 Order name: SARS RAPID; Complete Time: 17:49 snw Administered Medications: 18:29 Drug: Bebtelovimab 175 mg Route: IV; Rate: calculated rate; Site: right antecubital; hb 18:30 Follow up: IV Status: Completed infusion; IV Intake: 5ml hb 19:30 Follow up: Response: No adverse reaction hb Disposition Summary: 04/25/22 17:53 Discharge Ordered Location: Home snw Condition: Stable snw Diagnosis - SARS-associated coronavirus as the cause of diseases classified elsewhere snw - Cough snw Followup: snw - With: Willy Montanez MD - When: 5 - 6 days - Reason: Recheck today's complaints, Continuance of care, Re-evaluation by your physician Followup: snw - With: Emergency Department - When: As needed - Reason: Worsening of condition Discharge Instructions: - Discharge Summary Sheet snw - Aspirin and Your Heart snw - Cough, Adult snw - COVID-19 snw - 10 Things You Can Do to Manage Your COVID-19 Symptoms at Home - [facility] snw - COVID-19: Quarantine vs. Isolation - [facility] snw - Prevent the Spread of COVID-19 if You Are Sick - [facility] snw Forms: - Medication Reconciliation Form snw - Thank You Letter snw - Antibiotic Education snw - Prescription Opioid Use snw Signatures: Dispatcher [employer] EDMS Lazara Gilbert, HEAT AND FROST INSULATOR HELPER-C HEAT AND FROST INSULATOR HELPER-Csnw Chelsy Matos, RN RN hb Taylor Melendez RN RN kr3
--- NOTE | 2022-04-25 17:53 | ER ---
Nurse's Notes [facility] Name: Artemio Rios Age: 81 yrs Sex: Male : 1940 Arrival Date: 04/25/2022 Time: 17:05 Bed 12 Private MD: Willy Montanez Diagnosis: SARS-associated coronavirus as the cause of diseases classified elsewhere;Cough Presentation: 04/25 17:09 Chief complaint: Patient states: cough that started Wednesday night. Coronavirus kr3 screen: Vaccine status: Patient reports receiving the 2nd dose of the covid vaccine. Client denies travel out of the [place] in the last 14 days. Ebola Screen: Patient denies travel to an Ebola-affected area in the 21 days before illness onset. Initial Sepsis Screen: Does the patient meet any 2 criteria? No. Patient's initial sepsis screen is negative. Does the patient have a suspected source of infection? No. Patient's initial sepsis screen is negative. Risk Assessment: Do you want to hurt yourself or someone else? Patient reports no desire to harm self or others. Onset of symptoms was April 22, 2022. 17:09 Method Of Arrival: Ambulatory kr3 17:09 Acuity: KAROLYN 4 kr3 Triage Assessment: 17:14 General: Appears in no apparent distress. comfortable, Behavior is calm, cooperative, kr3 appropriate for age. Pain: Denies pain. Historical: - Allergies: 17:13 No Known Allergies; kr3 - PMHx: 17:12 Hypertension; Atrial Fib; Hyperlipidemia; kr3 - PSHx: 17:12 freeze prostate; Appendectomy; kr3 - Immunization history:: Adult Immunizations up to date, Client reports receiving the 2nd dose of the Covid vaccine. - Social history:: Smoking status: Patient denies any tobacco usage or history of. Screenin:36 Abuse screen: Denies threats or abuse. Denies injuries from another. Nutritional hb screening: No deficits noted. Tuberculosis screening: No symptoms or risk factors identified. Fall Risk None identified. Assessment: 17:36 General: Appears in no apparent distress. Behavior is calm, cooperative. Pain: Denies hb pain. Neuro: Level of Consciousness is awake, alert, obeys commands, Oriented to person, place, time, situation. Cardiovascular: Patient's skin is warm and dry. Respiratory: Reports cough that is Respiratory effort is even, unlabored, Respiratory pattern is regular, symmetrical. GI: No signs and/or symptoms were reported involving the gastrointestinal system. : No signs and/or symptoms were reported regarding the genitourinary system. EENT: No signs and/or symptoms were reported regarding the EENT system. Derm: Skin is pink, warm \T\ dry. Musculoskeletal: No signs and/or symptoms reported regarding the musculoskeletal system. Vital Signs: 17:09 BP 128 / 75; Pulse 79; Resp 16; Temp 97.7; Pulse Ox 100% ; Weight 86.18 kg; Height 5 kr3 ft. 11 in. (180.34 cm); Pain 0/10; 17:09 Body Mass Index 26.50 (86.18 kg, 180.34 cm) kr3 ED Course: 17:05 Patient arrived in ED. rg4 17:06 Willy Montanez MD is Private Physician. rg4 17:08 Lazara Gilbert F[facility]-C [facility]. snw 17:08 Zack Laureano MD is Attending Physician. snw 17:12 Triage completed. kr3 17:14 Arm band placed on Patient placed in an exam room, on a stretcher. kr3 17:25 Chelsy Matos, ANDREAS is Primary Nurse. hb 17:32 SARS RAPID Sent. kc6 17:36 Patient has correct armband on for positive identification. hb 17:51 Willy Montanez MD is Referral Physician. snw 18:28 Inserted saline lock: 22 gauge in right antecubital area, using aseptic technique. hb 19:30 No provider procedures requiring assistance completed. IV discontinued, intact, hb bleeding controlled, No redness/swelling at site. Administered Medications: 18:29 Drug: Bebtelovimab 175 mg Route: IV; Rate: calculated rate; Site: right antecubital; hb 18:30 Follow up: IV Status: Completed infusion; IV Intake: 5ml hb 19:30 Follow up: Response: No adverse reaction hb Medication: 17:36 VIS not applicable for this client. hb Intake: 18:30 IV: 5ml; Total: 5ml. hb Outcome: 17:53 Discharge ordered by . snw 19:30 Discharged to home ambulatory. hb 19:30 Condition: stable 19:30 Discharge instructions given to patient, Instructed on discharge instructions, follow up and referral plans. medication usage, Demonstrated understanding of instructions, follow-up care, medications. 19:32 Patient left the ED. hb Signatures: Lazara Gilbert, MELLY-C MUSIC THERAPY SPECIALIST-Csnw Chelsy Matos RN RN Kellie Rao rg4 Taylor Melendez RN RN kr3 Tash Kelley kc6 Corrections: (The following items were deleted from the chart) 20:23 19:18 Patient left the ED. hb hb
[2022-04-25] MEDS ORDERED: BEBTELOVIMAB 175 MG/2 ML VIAL IV ONE (18:09)
[2022-04-25 20:17] VITALS: BP 128/75; TEMP 97.7; O2SAT 100
== END 2022-04-25 19:18 | disposition home or self-care (01) ==
LOC: ER 17:04
DX: U07.1 COVID-19 (principal); I10 Essential (primary) hypertension
CPT/HCPCS: 36415; 87811; 96374; 99283